=== PATIENT | female | born 1985 | race Caucasian/White ===

== ENCOUNTER 2024-06-23 18:08 | Emergency (ER) | payer BC, SELFPAY ==
[2024-06-23 18:12] VITALS: BP 134/87
[2024-06-23 19:00] LABS: % Basophils 0.3 % (0-2); % Eosinophils 0.1 % (0-6); % Immature Granulocytes 0.3 % (0-0.5); % Lymphocytes 13.6 % (20.5-51.1); % Monocytes 3.4 % (1.7-9.3); % Neutrophils 82.3 % (42.2-75.2); Absolute Lymphocytes 1.1 10^3/uL (1.2-3.4); Absolute Monocytes 0.3 10^3/uL (0.1-0.6); Absolute Neutrophils 6.5 10^3/uL (1.4-6.5); Hematocrit 40.9 % (37.0-47.0); Hemoglobin 13.9 g/dL (12.0-16.0); Mean Corpuscular Hgb 30.2 pg (27.0-31.0); Mean Corpuscular Volume 88.7 fL (81.0-99.0); Mean Platelet Volume 8.7 fL (7.4-10.4); Nucleated Red Blood Cells % 0 %; Platelet Count 255 10^3/uL (130-400); Red Blood Cell Count 4.61 10^6/uL (4.20-5.40); Red Cell Dist. Width 11.9 % (11.5-14.5); White Blood Cell Count 7.9 10^3/uL (4.8-10.8)
[2024-06-23 19:14] LABS: ALT (SGPT) 14 U/L (0-35); AST (SGOT) 21 U/L (14-36); Albumin 4.2 g/dl (3.5-5.0); Alkaline Phosphatase 73 U/L (38-126); Blood Urea Nitrogen 10 mg/dl (7-17); Calcium 9.3 mg/dl (8.4-10.2); Carbon Dioxide 24 mmol/L (22-30); Chloride 102 mmol/L (98-107); Glucose 102 mg/dl (70-99); HCG, Serum Qualitative Screen Negative; Lipase 61 U/L (23-300); Potassium 4.2 mmol/L (3.5-5.1); Sodium 134 mmol/L (135-145); Total Bilirubin 0.6 mg/dl (0.2-1.3); Total Protein 7.1 g/dl (6.3-8.2); eGFR > 60.00
[2024-06-23 19:24] LABS: Urine Albumin Negative (Neg - Trace); Urine Bilirubin Negative (Negative); Urine Character Clear (Clear); Urine Color Yellow; Urine Glucose Negative (Negative); Urine Ketone 1+ (Negative); Urine Leukocyte 1+ (Negative); Urine Nitrite Negative (Negative); Urine Occult Blood Negative (Negative); Urine Specific Gravity 1.005 (<1.030); Urine Urobilinogen Negative (Neg - 1+)
[2024-06-23 19:55] VITALS: BMI 25.8
--- NOTE | 2024-06-23 19:56 | EDRN ---
Pt says from pt woke from sleep with severe abd pain RLQ near belly button. Pt had chills, had trouble getting back to sleep. Pt woke later and says she has had knife stabbing pain in this area. Pt ate half a banana and says she has
decreased appetite. Around 1600 pt got clammy and vomited few times. Pain waxes and wanes. Pt had 2 BMs today. No fever/cough, cp/sob, diarrhea/constipated, urinary symptoms. Pt has been able to keep water down until 1600 today and drank 4 oz
nupur valeria after vomiting episode which she has kept down.
[2024-06-23 19:57] LABS: Urine Squamous Cell 16-20 /LPF (Few)
[2024-06-23 19:58] LABS: Urine Red Blood Cell 0-2 /HPF (0-2); Urine White Cell 0-2 /HPF (0-5)
[2024-06-23 19:59] VITALS: BP 116/84
--- NOTE | 2024-06-23 20:36 | ED.GENMED ---
History of Present Illness
General
Chief Complaint: Abdominal Pain
Time Seen by Provider: 06/23/24 20:07
History of Present Illness
History of Present Illness:
38-year-old female presenting with right lower quadrant abdominal pain starting early this morning. Patient states that pain for started in periumbilical region around 330am. Patient states that pain is migrated down to right lower quadrant
throughout the day. Patient reports episode of vomiting earlier. Patient reports decreased PO intake
Past History
Past History
ED Past Medical History: None
ED Past Surgical History: None
Phy Exam
Physical Exam
Physical Exam:
General: Alert, no acute distress
Head: NCAT
Eyes: clear conjunctiva
Neck: supple
Cardiac: regular rate and rhythm, no murmur
Lungs: clear to auscultation bilaterally. No wheezes, rales, or rhonchi. Speaking full unlabored sentences. No respiratory distress.
Abdomen: soft, nondistended periumbilical and RLQ tenderness. No rebound or guarding.
MSK: no lower extremity edema bilaterally. No deformity
Skin: warm, dry
Neuro: Alert and oriented x3. no focal deficits
Course
Orders/Labs/Results
Orders:
Orders
06/23/24 18:16
Test Result ONCE
06/23/24 18:33
Complete Blood Count/With Diff Urgent
Comprehensive Metabolic Panel Urgent
HCG, Serum Qualitative Screen Urgent
Lipase Urgent
06/23/24 18:39
Urinalysis Reflex To Culture Urgent
Date Specimen was Collected: 06/23/24
Time Specimen was Collected: 18:16
Urine Microscopic Reflex Cult Urgent
Urine Culture Urgent
ERIN Source: U
Specimen Description:
Date Specimen was Collected: 06/23/24
Time Specimen was Collected: 18:16
06/23/24 20:17
CT Abd/pel W Iv And Oral Contr Urgent
Comment:
Reason For Exam: rlq tenderness
Iohexol [Omnipaque] See Protocol PO NOW STA
Transvaginal US [US Pelvis W Transvag Combined] Urgent
Comment:
Reason For Exam: rlq tenderness
06/23/24 20:20
0.9% Sodium Chloride 1000 ml [Nss] 1,000 ml IV BOLUS
Ketorolac [Toradol] 15 mg IV NOW STA
Ondansetron Injectable [Zofran] 4 mg IV NOW STA
Abnormal Lab Results
06/23/24 06/23/24
18:33 18:39
Absolute Lymphs (auto) 1.1 L 10^3/uL
(1.2-3.4)
Neutrophils % 82.3 H %
(42.2-75.2)
Lymphocytes % 13.6 L %
(20.5-51.1)
Sodium 134 L mmol/L
(135-145)
Glucose 102 H mg/dl
(70-99)
Urine Ketones 1+ A
(Negative)
Leukocyte Esterase Rfl 1+ A
(Negative)
06/23/24 18:33
06/23/24 18:33
Vital Signs
Initial and Last Documented VS:
Initial Vital Signs
Temp Pulse Resp BP Pulse Ox
98.1 F 71 16 134/87 99
06/23/24 18:12 06/23/24 18:12 06/23/24 18:12 06/23/24 18:12 06/23/24 18:12
Last Documented Vital Signs
Temp Pulse Resp BP Pulse Ox
98.5 F 58 16 109/72 99
06/23/24 22:16 06/23/24 23:48 06/23/24 23:48 06/23/24 23:48 06/23/24 23:48
MDM/Problems Addressed
Differential Diagnosis Includes:
appendicitis, ovarian torsion, mesenteric adentitis, constipation, UTI, kidney stone
MDM/Problems Addressed:
CT abdomen/pelvis shows The appendix is normal. No acute inflammatory process within the abdomen or pelvis. No bowel obstruction. No obstructive uropathy. US pelvis shows Unremarkable examination. Ovarian follicles. No evidence of torsion. No free
fluid. As read by radiology. UA negative for UTI. Labs unremarkable
On reevaluation, patient reports improvement in symptoms. Discussed results with patient at bedside. Stable for discharge with PCP follow-up. Will give GI follow up if no improvement in 1 week
*Critical Care Note
Total Time (30-74mins, 75-104mins- exclusive of procedures): Not Applicable
ED Attending Note
-
Portions of this chart may have been created with voice recognition software.� Occasional wrong word or��sound alike� substitutions may have occurred due to the inherent limitations of voice recognition software.
Discharge Plan
Departure
Patient Disposition: Home (Routine Discharge)
Date of Disposition: 06/23/24
Time of Disposition: 23:40
Patient with high blood pressure during this ER visit?: No
Discharge Problem:
Abdominal pain, RLQ
Instructions: Abdominal Pain
Prescriptions:
No Action
No Current Medications
0
Referrals:
Rebecca Brian DO [Family Provider] -
Debby Monet MD [Active] -
Activity Restrictions/Additional Instructions:
Take Tylenol 975 mg every 6 hours and/or ibuprofen 800 mg every 8 hours with food as needed for pain
Follow-up with primary care doctor next week. Follow-up with GI if no improvement in 1 week
Return to emergency department for fever, burning with urination, inability to tolerate liquids or new/persistent
Interventions
Interventions:
*Risk Screen - Suicide Last Done: 06/23/24 18:12
*General Assessment Last Done: 06/23/24 18:12
*Neglect/Abuse Screening Last Done: 06/23/24 19:55
*ED COVID-19 Vaccine History Last Done: 06/23/24 19:55
*Nursing Disposition Last Done: 06/23/24 23:56
JM-Uimhgv-Zamocspndi Assessment Last Done: 06/23/24 20:07
Discharge Date and Time
Discharge Date/Time: 06/23/24 23:56
Print Language: ITALIAN
[2024-06-23] MEDS: NSS 1000 IV (20:41)
[2024-06-23] MEDS: ZOFRAN 4 MG IV (20:41)
[2024-06-23] MEDS: TORADOL 15 MG IV (20:43)
[2024-06-23] MEDS: OMNIPAQUE 50 ML PO (20:44)
[2024-06-23 22:16] VITALS: BP 122/76
[2024-06-23 23:48] VITALS: BP 109/72
== END 2024-06-23 23:56 | disposition home or self-care (01) ==
LOC: EMR 18:08
PROVIDERS: Emergency Medicine; EMERGENCY PHYSICIAN Emergency Medicine; FAMILY PHYSICIAN Family Medicine
DX: R10.31 Right lower quadrant pain (principal); R11.10 Vomiting, unspecified
CPT/HCPCS: 99284; 96374; 96375; 96361; 74177; 76830; 76856; 80053; 81003; 81015; 83690; 84703; 85025; 87086; Q9967

== ENCOUNTER → 2024-12-07 09:24 | Outpatient (REF) | payer BC, SELFPAY | LOC: WDC 09:24 | PROVIDERS: FAMILY PHYSICIAN Family Medicine | DX: N63.24 Unspecified lump in the left breast, lower inner quadrant (principal) | CPT/HCPCS: 76642 ==

== ENCOUNTER → 2025-03-13 16:11 | Outpatient (REF) | payer BC, SELFPAY | LOC: RAD 16:11 | PROVIDERS: ATTENDING PHYSICIAN Obstetrics & Gynecology | DX: O36.80X0 Pregnancy with inconclusive fetal viability, not applicable or unspecified (principal) | CPT/HCPCS: 76801 ==

== ENCOUNTER 2025-03-16 06:11 | Day surgery (SDC) | payer BC, SELFPAY ==
[2025-03-16 06:56] VITALS: BP 122/70
[2025-03-16 07:09] VITALS: BMI 25.0
[2025-03-16 07:11] VITALS: BMI 25.0
[2025-03-16] MEDS: TYLENOL 1000 MG PO (07:18)
[2025-03-16] MEDS: NORMOSOL-R/PLASMALYTE-A 1000 IV (07:18)
[2025-03-16] MEDS: NEURONTIN 300 MG PO (07:18)
[2025-03-16] MEDS: VIBRAMYCIN 270 MG IV (07:18)
[2025-03-16 07:27] LABS: Hematocrit 33.8 % (37.0-47.0); Hemoglobin 11.9 g/dL (12.0-16.0)
[2025-03-16 08:19] VITALS: BP 106/79
[2025-03-16 08:30] VITALS: BP 128/78
--- NOTE | 2025-03-16 08:40 | W.IMMPOSTOP ---
Surgical Immed Post Op Note
-
Primary Surgeon: MD Fransisco
Assisting Surgeon: N/A
Pre-op Diagnosis: missed 13w
Post-op Diagnosis: same
Procedure Performed: D&E under ultrasound guidance
Anesthesia Type: TIVA
Specimen / Cultures: products of conception
Estimated Blood Loss: 5cc
Complications: none
Operative Findings: 1 laminaria and 1 gauze removed from the vagina. Normal-appearing external female genitalia. 14 weeks size anteverted uterus on bimanual exam. No appreciable adnexal masses or fullness.
--- NOTE | 2025-03-16 08:42 | OR.RPT ---
Operative Report
Operative Report
Patient name: Jeanne Thomason
Date of : 1985

Date of surgery: 03/16/2025
Primary Surgeon: MD Fransisco
Assisting Surgeon: N/A
Pre-op Diagnosis: Missed 13w
Post-op Diagnosis: same
Procedure Performed: D&E under ultrasound guidance
Anesthesia Type: TIVA
Specimen / Cultures: products of conception
Estimated Blood Loss: 5cc
Complications: none
Operative Findings: One laminaria and one gauze removed from the vagina. Normal-appearing external female genitalia. 14 weeks size anteverted uterus on bimanual exam. No appreciable adnexal masses or fullness.
Description of procedure
Patient was taken to the operating room where a timeout was performed to confirm correct patient and correct procedure. Total intravenous anesthesia was administered and the patient was positioned on the OR table in the dorsal lithotomy position.
All pressure points were padded and a Disha hugger was placed to maintain control of core body temperature. 1 laminaria and 1 gauze were removed from the vagina. A bimanual exam was performed and the uterus was noted to be anteverted, 14 weeks in
size, normal consistency, with no palpable adnexal masses or fullness. The patient was prepped and draped in the usual sterile fashion.
Operative technique
A straight catheter was introduced into the bladder which was drained of 75 cc of clear yellow urine. A weighted speculum was inserted into the vagina and a double sided retractor was used to visualize the anterior lip of the cervix, which was then
grasped with a single-tooth tenaculum. The cervix was serially dilated for introduction of the 14 mm curved suction curette.
The 14 mm curved suction curette was introduced into the uterine cavity to the fundus under ultrasound guidance. The suction was applied and curetting was performed by rotating curette 360 degrees as it was withdrawn from the uterus. Suction was
released prior to reaching the cervical os. This was done for a total of 6 passes with tissue obtained on each pass. Products of conception was obtained and sent for pathology and chromosomal analysis.
The single-tooth tenaculum was removed from the anterior lip of the cervix. Good hemostasis was confirmed at the tenaculum puncture sites. Weighted speculum was then removed from the vagina.
At the conclusion of the procedure all sponge and instrument counts were noted to be correct x 2. Patient tolerated the procedure well and was transferred to the PACU in stable condition prior to discharge with follow-up in 2 weeks.
[2025-03-16 10:00] VITALS: BP 102/67
== END 2025-03-16 10:30 | disposition home or self-care (01) ==
LOC: SDS 06:11
PROVIDERS: ATTENDING PHYSICIAN Obstetrics & Gynecology
DX: O02.1 Missed abortion (principal); Z3A.13 13 weeks gestation of pregnancy
CPT/HCPCS: 59820; 76998; 85014; 85018; 86850; 86900; 86901; 88305; C1713

== ENCOUNTER 2025-03-21 03:31 | Emergency (ER) | payer BC, SELFPAY ==
[2025-03-21 03:35] VITALS: BP 135/97
[2025-03-21 04:31] LABS: Hematocrit 25.9 % (37.0-47.0); Hemoglobin 9.1 g/dL (12.0-16.0); Mean Corp Hgb Conc. 35.1 g/dL (33.0-37.0); Mean Corpuscular Volume 90.6 fL (81.0-99.0); Nucleated Red Blood Cells % 0 %; Platelet Count 291 10^3/uL (130-400); Red Cell Dist. Width 12.3 % (11.5-14.5)
[2025-03-21 04:43] LABS: ALT (SGPT) 14 U/L (0-35); AST (SGOT) 21 U/L (14-36); Albumin 4.0 g/dl (3.5-5.0); Alkaline Phosphatase 69 U/L (38-126); Blood Urea Nitrogen 13 mg/dl (7-17); Calcium 9.0 mg/dl (8.4-10.2); Carbon Dioxide 22 mmol/L (22-30); Chloride 105 mmol/L (98-107); Glucose 110 mg/dl (70-99); Potassium 3.9 mmol/L (3.5-5.1); Sodium 135 mmol/L (135-145); Total Protein 7.0 g/dl (6.3-8.2); eGFR > 60.00
[2025-03-21 05:36] VITALS: BP 97/70
--- NOTE | 2025-03-21 05:41 | ED.GENMED ---
History of Present Illness
General
Chief Complaint: Vaginal Bleeding
Source: patient and spouse
Exam Limitations: none
Time Seen by Provider: 03/21/25 03:45
Nursing documentation reviewed up to this point in time: agreed with
History of Present Illness
History of Present Illness:
Note:
CHIEF COMPLAINT(S)
Sharp, stabbing abdominal pain with excessive vaginal bleeding and passing clots.
HISTORY OF PRESENT ILLNESS
The patient is a 39-year-old female who presents with sharp, stabbing abdominal pain and excessive vaginal bleeding since last night. She reports soaking through several menstrual pads in the last four hours, with some being saturated within ten
minutes. She describes the bleeding as a gush followed by passage of clots. The patient has experienced similar bleeding episodes leading to soaked clothes. She notes associated symptoms of nearly fainting and vomiting in the shower on Wednesday,
after which she contacted the on-call doctor. The patient experienced a continuous stabbing pain starting around 8 PM last night, worsening overnight with significant blood loss and clots. She reports an inability to sleep due to the pain, which she
rates as severe. The patient recently experienced a dilation and evacuation procedure conducted by Dr. Moody approximately two days ago and mentions that this is her second such procedure. She states that the onset of her symptoms coincided with
the heightened bleeding and pain. She contacted Dr. Barrow at 3 AM for further guidance. No bladder fullness is noted.
PAST MEDICAL AND SURGICAL HISTORY
The patient denies any medical or surgical history aside from two dilation and evacuation procedures.
MEDICATIONS
The patient reports that she does not take any medications.
SOCIAL HISTORY
The patient reports a history of smoking but denies current use of cigarettes, alcohol, or drugs. She describes her lifestyle as routine and without recent changes.
REVIEW OF SYSTEMS
- Cardiovascular: No reports of dizziness or syncope.
- Gastrointestinal: Denies nausea and no recent vomiting outside of past episode.
- Genitourinary: Excessive vaginal bleeding, passing clots.
- Musculoskeletal: Reports episodes of sharp, stabbing abdominal pain.
- Neurological: Nearly fainted in the shower, indicative of possible syncope episode.
- Psychiatric: Inability to sleep due to pain intensity and accompanying distress.
PHYSICAL EXAM
General: Alert, in moderate distress due to pain.
Skin: Warm, dry with no acute abnormalities noted.
Head: Normocephalic, atraumatic.
Neck: Supple, trachea midline.
Eye, Ears, Nose, Mouth and Throat: Oral mucosa moist.
Cardiovascular: Regular rate and rhythm, no peripheral edema.
Respiratory: Non-labored respirations.
Gastrointestinal: Abdomen tender to palpation, nondistended.
Back: Normal range of motion, normal alignment noted.
Musculoskeletal: Normal range of motion, normal strength.
Neurological: Alert and oriented to person, place, time, and situation.
Psychiatric: Appropriate mood, cooperative but clearly in distress due to physical pain.
PLAN
Initiate intravenous fluid therapy to manage hydration and support blood volume.
Administer analgesics, starting with morphine, to control severe pain.
Obtain necessary blood work as indicated to evaluate the extent of blood loss and potential underlying issues.
Prepare for potential further gynecological assessment to manage bleeding post-dilation and evacuation.
DIFFERENTIAL DIAGNOSIS
The Differential Diagnosis includes, in no particular order and is not limited to:
1. Post-dilation and evacuation hemorrhage
2. Retained products of conception
3. Uterine atony
4. Infection (endometritis)
5. Coagulopathy
6. Ectopic
7. Uterine perforation
8. Endometrial or cervical pathology
9. Hypovolemic shock
10. Structural abnormalities (e.g., fibroids or polyps)
CARE-UPDATE
03/21/25 - 05:[address] Mooyd presents at the bedside examined the patient
Disposition:
SUMMARY OF ENCOUNTER
The patient was seen in the emergency department due to severe abdominal pain and excessive vaginal bleeding following a dilation and evacuation procedure. The primary presenting issues were the acute onset of sharp, stabbing abdominal pain and
significant vaginal bleeding, including the passage of clots, which led to symptom escalation such as near syncope and vomiting. Given the patients recent procedure and symptomatology, management focused on stabilization, including hydration and
pain control.
DISPOSITION
Patient to be discharged home.
ASSESSMENT
Post-dilation and evacuation hemorrhage.
EMERGENCY TREATMENTS ADMINISTERED
Analgesics, starting with morphine, were administered to control severe pain. Intravenous fluid therapy was also initiated to manage hydration and support blood volume.
MANAGEMENT OF THE PATIENTS CARE WAS DISCUSSED WITH
Dr. Isaac discussed the patients management plan.
PLAN
The plan included continued monitoring of symptoms, including any escalation in bleeding or pain, advising rest, hydration, and taking necessary steps if symptoms worsen or new symptoms arise, including contacting the healthcare provider promptly.
MEDICATION RECONCILIATION
Cytotec (misoprostol) was ordered by Dr. Isaac but the patient refused administration.
MEDICAL DECISION MAKING
- Complexity of Data Reviewed: Chronic conditions affecting care. Differential diagnosis considered includes post-dilation and evacuation hemorrhage, retained products of conception, uterine atony, infection (endometritis), coagulopathy, ectopic
, uterine perforation, endometrial or cervical pathology, hypovolemic shock, and structural abnormalities (e.g., fibroids or polyps).
- Data:
Category 1: The tests ordered include blood work to evaluate the extent of blood loss and potential underlying issues.
Category 3: Discussion of management with Dr. Isaac.
- Risk: Management includes addressing the risk of complications associated with prescription drug management (e.g., analgesics) and diagnostic testing for hemorrhage or uterine issues.
DIAGNOSIS
1. Post-dilation and evacuation hemorrhage (O08.1)
Past History
Past History
ED Past Medical History: None
ED Past Surgical History: None
Phy Exam
Physical Exam
Physical Exam:
.
Course
Orders/Labs/Results
Orders:
Orders
03/21/25 03:47
US Pelvis W Transvag Combined Urgent
Reason For Exam: s/p d&E, vag bleeding
03/21/25 04:02
Type And Crossmatch [Type+Screen] Urgent
Complete Blood Count/With Diff Urgent
Comprehensive Metabolic Panel Urgent
03/21/25 06:00
miSOPROStol [Cytotec] 400 mcg SL ONCE ONE
Abnormal Lab Results
03/21/25
04:02
RBC 2.86 L 10^6/uL
(4.20-5.40)
Hgb 9.1 L D g/dL
(12.0-16.0)
Hct 25.9 L %
(37.0-47.0)
MCH 31.8 H pg
(27.0-31.0)
Abs Immat Gran (auto) 0.1 H 10^3/uL
(0-0.05)
Immature Gran % 1.2 H %
(0-0.5)
Glucose 110 H mg/dl
(70-99)
03/21/25 04:02
03/21/25 04:02
Vital Signs
Initial and Last Documented VS:
Initial Vital Signs
Temp Pulse Resp BP Pulse Ox
98.2 F 99 20 135/97 100
03/21/25 03:35 03/21/25 03:35 03/21/25 03:35 03/21/25 03:35 03/21/25 03:35
Last Documented Vital Signs
Temp Pulse Resp BP Pulse Ox
98.2 F 64 17 97/70 100
03/21/25 03:35 03/21/25 05:36 03/21/25 05:36 03/21/25 05:36 03/21/25 05:43
*Radiology
Radiology exam reviewed: radiology read reviewed
*Pulse Oximetry
SaO2: 100
Oxygen Mode of Delivery: Room air
Patient hypoxic: no
*Critical Care Note
Total Time (30-74mins, 75-104mins- exclusive of procedures): Not Applicable
Update Note
Update Note:
Dr. Moody came down to examine the patient. She ordered Cytotec as a one-time dose to be given here in the emergency department. Patient to be discharged home to follow-up
NAME: MARKY PRABHAKAR
DATE OF EXAM: 03/21/2025
Patient No: [id number]
Physician: GONZALO
Date of : 1985
Past Medical History (entered by Technologist):
Reason For Exam (entered by Technologist):
Other Notes (entered by Technologist):
Additional Information (per [facility]iologist):
Pelvic ultrasound:
IMPRESSION:
The endometrial canal is thickened with echogenic material, most likely blood products. Within the anterior fundus of the endometrial canal there is echogenic, vascular material most consistent with retained products of conception.
The bilateral ovaries are normal in echogenicity and vascularity. No suspicious adnexal masses. No pelvic free fluid.
Case finalized on 03/21/25 05:32 EDT
Cheng Greco M.D.
This report has been electronically signed and verified by the Radiologist whose name is printed above.
This report contains privileged and confidential information and is intended solely for the use of the individual or entity to which it is addressed. If you are not the intended recipient of this report, you are hereby notified that any copying,
distribution, dissemination or action taken in relation to the contents of this report is strictly prohibited and may be unlawful. If you have received this report in error, please notify the sender immediately at [phone] and permanently delete
the original report and destroy any copies or printouts.

ADDENDUM:
Since the area of vascularity within the endometrial canal was only seen on plain, this could be artifactual although still remains concerning but not definitive for retained products. Please see that report for complete details
Pelvic ultrasound:
IMPRESSION:
The endometrial canal is thickened with echogenic material, most likely blood products. Within the anterior fundus of the endometrial canal there is echogenic, vascular material concerning for retained products of conception. Additional
differential includes an area of hypervascularity within the uterus adjacent to the endometrial canal, potentially secondary to postprocedural changes from the D&C.
The bilateral ovaries are normal in echogenicity and vascularity. No suspicious adnexal masses. No pelvic free fluid.
Case finalized on 03/21/25 05:32 EDT
Cheng Greco M.D.
This report has been electronically signed and verified by the Radiologist whose name is printed above.
/
end of section
ED Attending Note
-
Portions of this chart may have been created with voice recognition software.� Occasional wrong word or��sound alike� substitutions may have occurred due to the inherent limitations of voice recognition software.
Discharge Plan
Departure
Patient Disposition: Home (Routine Discharge)
Date of Disposition: 03/21/25
Time of Disposition: 06:20
Patient with high blood pressure during this ER visit?: Yes
Condition: Fair
Discharge Problem:
Vaginal bleeding
Instructions: Miscarriage (DC), loss - ED (DC)
Prescriptions:
No Action
No Current Medications
0
Referrals:
Fransisco,Annette, MD [Active, Gynecology] - 03/23/25
Activity Restrictions/Additional Instructions:
Thank You for choosing [facility].
It was a pleasure meeting you and taking part in your care. We hope for your continued healing and wellness.
Please read discharge instructions in their entirety. However, they are for general education and may not describe your exact diagnosis at discharge. Information on your ER visit and medical conditions were discussed with you along with appropriate
follow up information...
If indicated, please take your medications as instructed and indicated on discharge paperwork.
Please schedule a follow up appointment as directed. Call to schedule an appointment
Please return to the emergency department with ANY change in, persisting, or worsening of symptoms. If any of your symptoms do not improve, or persist, or become more severe within 6-12 hours, please return to the emergency department for further
care.
Please return to the emergency department if you develop a headache, neck pain/stiffness, fever greater than 100.4F, chest pain, shortness of breath, persistent nausea, vomiting, slurred speech, difficulty walking, numbness/tingling, weakness, signs
of infection or any other symptoms that are worrisome to you.
If you have any questions or concerns please do not hesitate to call the Hospital at .
Interventions
Interventions:
*Risk Screen - Suicide Last Done: 03/21/25 03:35
*General Assessment Last Done: 03/21/25 04:20
*Neglect/Abuse Screening Last Done: 03/21/25 03:35
*ED- Fall Risk Assessment Last Done: 03/21/25 04:20
*ED COVID-19 Vaccine History Last Done: 03/21/25 04:20
*ED Influenza Vaccine History Last Done: 03/21/25 04:20
ED-Female Genitourinary Assessment Last Done: 03/21/25 04:21
Discharge Date and Time
Print Language: TELUGU
--- NOTE | 2025-03-21 06:02 | CON.MD ---
CC / HPI / ROS
-
Chief Complaint:
vaginal bleeding
History of Present Illness:
Jeanne is a 39 yo F POD#5 from ultrasound guided D&E for 13w missed presenting with vaginal bleeding. She states that on POD#1 and POD#4, she began having large clots, specifically on POD#4. She had expelled large clots with associated
soaking through pads. She denies lightheadedness/dizziness. No nausea/vomiting. Now states that she had one more clot prior to TVUS performed in radiology.
Review of Systems:
Pos vaginal bleeding, PERALTA
Neg N/V, lightheadedness
Current/Past Med/Surg History
-
Respiratory: No Issues Reported
Vascular / Heart: No Issues Reported
Neurological / Brain / Spinal Cord: No Issues Reported
Gastrointestinal/Bowel/Digestive: No Issues Reported
Musculoskeletal: No Issues Reported
Endocrine: No Issues Reported
Blood: No Issues Reported
Psychiatric: No Issues Reported
Urinary/Reproductive: No Issues Reported
Operations / Procedures
Issues with Anesthesia: No
Past Surgical History: Gynecological (D&E x2)
Medications / Supplements
Medication / Herbal Supplements: No
�Medication �Instructions �Recorded
No Meds [No Current Medications] 06/23/24
Allergies
Allergies: Yes
Allergy/AdvReac Type Severity Reaction Status Date / Time
codeine Allergy Severe Nausea / Verified 03/21/25 03:35
Vomiting
kiwi Allergy Severe Swelling Verified 03/21/25 03:35
adhesive tape Allergy Intermediate Hives Verified 03/21/25 03:35
oxycodone HCl (From Percocet) Allergy Nausea / Verified 03/21/25 03:35
Vomiting
Vital Signs / Labs
-
Vital Signs and Labs:
Temp Pulse Resp BP Pulse Ox
98.2 F 64 17 97/70 100
03/21/25 03:35 03/21/25 05:36 03/21/25 05:36 03/21/25 05:36 03/21/25 05:43
03/21/25 04:02
03/21/25 04:02
03/21/25
04:02
RBC 2.86 L
Hgb 9.1 L D
Hct 25.9 L
MCH 31.8 H
Abs Immat Gran (auto) 0.1 H
Immature Gran % 1.2 H
Glucose 110 H
Pelvic US: Thickened endometrium measuring up to 1.9 cm, appearing echogenic with mild diffuse heterogeneity though predominantly avascular, possible blood products. However, along the anterior margin of the fundal endometrium, there is echogenic
vascular material suspicious for retained products of conception.
Data Reviewed / Physical Exam
-
Vital Signs
Temp Pulse Resp BP Pulse Ox
98.2 F 64 17 97/70 100
03/21/25 03:35 03/21/25 05:36 03/21/25 05:36 03/21/25 05:36 03/21/25 05:43
Lab Results
03/21/25
04:02
Glucose 110 H
Physical Exam:
General: no acute distress
Lungs: no increased work of breathing
Cards: regular heart rate
Abd: soft, 10w size uterus on bimanual exam
Pelvic: normal external female genitalia, on speculum exam tiffany size clot present, no active bleeding from the cervix. closed on bimanual exam
Ext: nontender calfs.
Assessemnt/Plan
-
A: Jeanne is a 39 yo F POD#5 from ultrasound guided D&E for 13w missed presenting with vaginal bleeding.
P:
-Reviewed pelvic ultrasound which showed endometrial stripe of 1.9 cm c/w blood products and a possible area of retained POC in the anterior fundal margin of the endometrium. Reviewed that potential for retained POCs is possible, but low likelihood
given D&E was done under ultrasound guidance. Reviewed treatment options for vaginal bleeding post D&E including expectant, medical and surgical mgmt. Reviewed possibility of needing surgical procedure (D&E) if retained POCs or worsening bleeding.
Patient would like to avoid medication and further instrumentation. Reviewed that this is a reasonable option given normal vital signs, minimal bleeding on exam, and mild anemia. Recommend patient follow up in office on 03/23/25. Message sent to
office. Warning signs reviewed and all questions answered.
== END 2025-03-21 06:46 | disposition home or self-care (01) ==
LOC: EMR 03:31
PROVIDERS: EMERGENCY PHYSICIAN Student in an Organized Health Care Education/Training Program
DX: N93.9 Abnormal uterine and vaginal bleeding, unspecified (principal); D64.9 Anemia, unspecified; R03.0 Elevated blood-pressure reading, without diagnosis of hypertension; Z87.891 Personal history of nicotine dependence
CPT/HCPCS: 99284; 76830; 76856; 80053; 85025; 86850; 86900; 86901